=== PATIENT | female | born 1975 | race Caucasian/White ===

== ENCOUNTER → 2019-08-01 | Outpatient (CLI) | payer BC | LOC: MC.RAD 10:21 | DX: Z12.31 Encounter for screening mammogram for malignant neoplasm of breast (principal) ==

== ENCOUNTER 2022-02-10 06:27 | Day surgery (SDC) | payer BC ==
[~2022-02-10] VITALS: Ht 162.6 cm; Wt 69.7 kg
[2022-02-10 06:50] VITALS: BP 145/105; PULSE 89; TEMP 98.2
[2022-02-10 08:10] VITALS: BP 117/89; PULSE 81; TEMP 97.5
[2022-02-10 08:15] VITALS: BP 115/85; PULSE 77
[2022-02-10 08:30] VITALS: BP 134/102; PULSE 76
[2022-02-10 08:45] VITALS: BP 124/99; PULSE 67
[2022-02-10 09:00] VITALS: BP 131/94; PULSE 68
--- NOTE | 2022-02-10 09:22 | NUR ---
0810 Pt returns from endo procedure via cart and RN assist to [facility] [place] [facility]. Pt ambulates from cart to recliner with RN assist. Monitors on and alarms set. Call light within reach. Report received from CHETNA Keller. Pt alert and oriented. Pt requests water and muffin. Pt denies any pain or nausea. Pt's present in room. 0830 Pt taking food and drink well. No complications noted. 0915 Discharge instructions given to pt and pt's . All questions answered to their satisfaction. Handed to pt are a thank you card and discharge information. 0922 Pt transferred out of the hospital via wheelchair and this RN assist, to private vehicle driven by pt's .
== END 2022-02-10 09:22 | disposition home or self-care (01) ==
LOC: SDCO 06:27
DX: Z12.11 Encounter for screening for malignant neoplasm of colon (principal)
CPT/HCPCS: J2704; J7030

== ENCOUNTER → 2022-02-18 | Outpatient (CLI) | payer BC | LOC: MC.RAD 15:55 | DX: Z12.31 Encounter for screening mammogram for malignant neoplasm of breast (principal) ==

== ENCOUNTER → 2024-04-04 | Outpatient (CLI) | payer BC, OTHER | LOC: MC.RAD 06:59 | DX: Z12.31 Encounter for screening mammogram for malignant neoplasm of breast (principal); N63.21 Unspecified lump in the left breast, upper outer quadrant; N64.89 Other specified disorders of breast ==